=== PATIENT | female | born 1955 | race Caucasian/White ===

== ENCOUNTER → 2017-01-25 | Outpatient (CLI) | payer OTHER | LOC: BMCIMAGING 07:18 | PROVIDERS: ATTEND Physician Assistant | DX: D18.03 Hemangioma of intra-abdominal structures (principal); K76.89 Other specified diseases of liver ==

== ENCOUNTER → 2017-08-09 | Outpatient (CLI) | payer OTHER | LOC: BMCIMAGING 07:15 | PROVIDERS: ATTEND Physician Assistant | DX: D18.00 Hemangioma unspecified site (principal) ==

== ENCOUNTER 2018-06-27 07:15 | Observation (INO) | payer OTHER ==
--- NOTE | 2018-06-24 13:50 | GHP ---
DATE OF ADMISSION: 06/27/2018 Date of planned procedure: 06/27/2018. PREOPERATIVE DIAGNOSIS: Osteoarthritis, left knee. PLANNED PROCEDURE: Left total knee arthroplasty. HPI: The patient is a 63-year-old female with slowly worsening knee pain, valgus deformity of her le ft knee. She has failed conservative management and decision made to proceed with a total knee arthr oplasty. PRIOR MEDICAL HISTORY: Anemia, history of a blood clot, migraines, UTI. MEDICATIONS: Nature-Throid 65 mg tablet. ALLERGIES: Bactrim, gives her a headache, severe hives. Oxycodone, anaphylaxis. SOCIAL HISTORY: Former smoker. Currently not smoking. Occasional alcohol use. Enjoys biking and l ifting weights. [place] here [place] town. REVIEW OF SYSTEMS: No shortness of breath. No chest pain. PHYSICAL EXAM: VITAL SIGNS: She is 5 feet 5 inches tall, weighs 150 pounds. Blood pressure is 126/ 68, heart rate 68, respiratory rate is 14 on room air. GENERAL: Alert and oriented x3. HEENT: Nor mocephalic, atraumatic. Extraocular muscles are intact. NECK: Supple. There is no lymphadenopathy . No JVD. CHEST: Clear to auscultation. CARDIOVASCULAR: Regular rate and rhythm. ABDOMEN: Soft , nontender, nondistended. There is no hepatosplenomegaly. EXTREMITY: Left knee shows no effusion. There is full extension, 125 degrees of flexion. Does have a valgus deformity, it is correctable t o straight. Otherwise it is stable to varus and valgus stress testing. 1+ Luke with firm endpoin t. Negative posterior drawer. Calf is soft without tenderness. 2+ dorsalis pedis, posterior tibial pulses. 5/5 ankle dorsiflexion, plantar flexion, inversion, and eversion, strength. IMAGING: X-rays are reviewed. Again, they show severe tricompartment osteoarthritis with a valgus d eformity. ASSESSMENT: Tricompartment osteoarthritis, left knee, valgus deformity. PLAN: I recommend proceeding with a total knee arthroplasty. Risks and benefits were discussed. We will attempt to do a press-fit knee if her bone quality is okay. Infection, blood clots, and postop erative stiffness were all described as risks. She understands these risks and wishes to proceed. Kyle morse on surgery next Wednesday at [facility]. /[id number]/MODL
--- NOTE | 2018-07-28 22:07 | GHP ---
DATE OF ADMISSION: 07/29/2018 DATE OF PLANNED PROCEDURE: 07/29/2018. PREOPERATIVE DIAGNOSIS: Osteoarthritis, left knee. PLANNED PROCEDURE: Left total knee arthroplasty. HPI: The patient is a 63-year-old female with worsening knee pain, valgus deformity of her left knee , failed conservative management. She was initially scheduled for this procedure last month; however , on preoperative workup she was found to have some abnormalities with her white blood cell count. S he has been worked up by Hematology-Oncology, thought that she may have a type of leukemia. She has a bone marrow aspiration pending. She is cleared from her interior mechanic-oncologist for total knee art hroplasty. PRIOR MEDICAL HISTORY: Anemia, blood clots, migraines, UTI. MEDICATIONS: Nature Thyroid 65 mg. ALLERGIES: Bactrim - headache and hives. Oxycodone - possible anaphylaxis. SOCIAL HISTORY: Former smoker. Moderate alcohol use. [place] here [place] town. REVIEW OF SYSTEMS: No shortness of breath. No chest pain. Otherwise, review of systems unremarkabl e. PHYSICAL EXAM: Healthy-appearing 63-year-old female. She is 5 feet 5 inches tall, weighs 150 pounds . VITAL SIGNS: Blood pressure is 122/64, heart rate is 64, respiratory rate is 12 on room air. GEN ERAL: Alert and oriented x3. HEENT: Normocephalic, atraumatic. Extraocular muscles intact. NECK: Supple. No lymphadenopathy. No JVD. CHEST: Clear to auscultation. CARDIOVASCULAR: Regular rat e and rhythm. ABDOMEN: Soft, nontender, nondistended. No hepatosplenomegaly. EXTREMITIES: Left k nee shows no effusion, valgus alignment. She has full extension and flexes to 125 degrees. Her valg us deformity is correctable to straight. 1+ Luke with a firm endpoint. Negative posterior drawer . Calf is soft. She has 2+ dorsalis pedis and posterior tibial pulses. 5/5 ankle dorsiflexion and plantar flexion. IMAGING: X-rays show severe tricompartment osteoarthritis with valgus deformity. ASSESSMENT: Tricompartment osteoarthritis, left knee valgus deformity. PLAN: I recommend proceeding with a total knee arthroplasty. Risks and benefits including stiffness , need for revision surgery, blood clots, infection were all discussed. She understands these risks and wishes to proceed. We will plan on surgery Wednesday at [facility]. /[id number]/MODL
[2018-07-29] MEDS ORDERED: ceFAZolin 2 GM/DEXTROSE 100 ML IV ONE (13:30)
[2018-07-29] MEDS ORDERED: LR 1,000 ML IV ONE (13:31)
--- NOTE | 2018-07-29 14:10 | POSTANESTH ---
Post Anesthetic Evaluation Cardiovascular Status: Normal, Stable Respiratory Status: Normal, Stable Level of Consciousness/Mental Status: Can Participate in Eval, Mildly Sleepy, Arousable Pain Control: Adequate, Prn Tx Ordered Nausea/Vomiting Control: Adequate, Prn Tx Ordered Complications Possibly Related to Anesthesia: None Noted (Pt moving L toes, but not R yet.)
--- NOTE | 2018-07-29 14:11 | PDANEPAE ---
ANE History of Present Illness 63 yo female with OA for L TKA. ANE Past Medical History - Cardiovascular History Hx Hypertension: No Hx Arrhythmias: No Hx Chest Pain: No Hx Coronary Artery / Peripheral Vascular Disease: No Hx CHF / Valvular Disease: No Hx Palpitations: No - Pulmonary History Hx COPD: No Hx Asthma/Reactive Airway Disease: No Hx Recent Upper Respiratory Infection: No Hx Oxygen in Use at Home: No Hx Sleep Apnea: No Sleep Apnea Screening Result - Last Documented: Negative - Neurologic History Hx Cerebrovascular Accident: No Hx Seizures: No Hx Dementia: No Neurologic History Comment: MIGRAINE - Endocrine History Hx Diabetes: No Hypothyroid: Yes Hyperthyroid: No Obesity: no - Renal History Hx Renal Disorders: No Renal History Comment: KIDNEY INF ONCE about 30 years ago - Liver History Hx Hepatic Disorders: Yes Hepatic History Comment: ACUTE PANCREATITIS 2 YRS AGO. Liver hemangioma, monitored by [facility], has remained unchanged - Neurological & Psychiatric Hx Hx Neurological and Psychiatric Disorders: No - Cancer History Hx Cancer: No Cancer History Comment: pt currently being worked up for elevated lymph count ( maybe CLL) - Congenital Disorder History Hx Congenital Disorders: No - GI History Hx Gastrointestinal Disorders: No - Other Health History Other Health History: wears glasses. sensitive skin, breaks out in rashes easily. POST HIP SURG WHAT MAY HAVE BEEN A CLOT PER [facility] BUT NOT SEEN ON IMAGING. - Chronic Pain History Chronic Pain: Yes (L KNEE PAIN & R HIP OCCAS) - Surgical History Prior Surgeries: L KNEE SCOPE LATERAL RELEASE. R HIP SCOPE ANE Review of Systems Review of Systems: - Exercise capacity METS (RN): 5 METS - Systems Constitutional: Reports: no symptoms Cardiac: Reports: no symptoms Respiratory: Reports: no symptoms ANE Patient History - Allergies Allergies/Adverse Reactions: oxycodone Allergy (Verified 07/28/18 11:13) Swelling neck, face, throat sulfamethoxazole [From Bactrim] Allergy (Verified 07/28/18 11:13) Rash, Severe Headache trimethoprim [From Bactrim] Allergy (Verified 07/28/18 11:13) Rash, Severe Headache - Home Medications Home Medications: Bi-Est Cmpd Cream 1 maci TP DAILY 05/30/18 [Last Taken Unknown] Dhea/Testosterone Cmpd Cream 1 maci TP DAILY 05/30/18 [Last Taken Unknown] Nature Throid 65mg Tab 65 mg PO DAILY 05/30/18 [Last Taken Unknown] Progesterone Cmpd Capsule 1 cap PO HS 05/30/18 [Last Taken Unknown] - Anes Hx Anes Hx: post operative nausea - Smoking Hx Smoking Status: Former smoker - Alcohol Use Alcohol Use: Occasionally - Family Anes Hx Family Anes Hx: neg - N/A Family Hx Anesthesia Complications: NEG ANE Labs/Vital Signs - Vital Signs Vital Signs: reviewed preoperatively; see RN documention for details Height: 165.1 cm Weight: 70.307 kg ANE Physical Exam - Airway Neck exam: FROM Mallampati Score: Class 2 - Pulmonary Pulmonary: clear to auscultation - Cardiovascular Cardiovascular: regular rate and rhythym - ASA Status ASA Status: II ANE Anesthesia Plan Anesthesia Plan: spinal Regional Anesthesia: adductor canal FNB, POPC/PSR
--- NOTE | 2018-07-29 14:12 | PDHPUP ---
History & Physical Update H&P update statement: This history and physical update is based on an assessment of the patient which was completed after admission or registration (within 24 hours), but prior to the surgery/procedure. H&P update: H&P reviewed & patient examined, no change in patient's condition since H&P completed
[2018-07-29] MEDS ORDERED: ceFAZolin 1 GM/5 ML SYR ONE (14:30)
[2018-07-29] MEDS ORDERED: BUPIVACAINE/EPI 0.5% 30 ML SDV ONE (14:30)
[2018-07-29] MEDS ORDERED: fentaNYL 100 MCG/2 ML INJ ONE (14:51)
[2018-07-29] MEDS ORDERED: PROPOFOL/EMULSION 500 MG/50 ML BOTTLE IV ONE (14:57)
[2018-07-29] MEDS ORDERED: THROMBIN (BOVINE) 5,000 UNIT VIAL TP ONE (15:00)
[2018-07-29] MEDS ORDERED: CALCIUM CHLORIDE 1 GM/10 ML INJ ONE (15:00)
[2018-07-29] MEDS ORDERED: ROPIVACAINE HCL 150 MG/30 ML INJ ONE (15:19)
[2018-07-29] MEDS ORDERED: PROPOFOL 200 MG/20 ML VIAL ONE ×2 (15:51)
[2018-07-29] MEDS ORDERED: ALBUTEROL 3 ML DEYVIAL IH PRN (16:02)
[2018-07-29] MEDS ORDERED: ACETAMINOPHEN 500 MG TAB PO PRN (16:02)
[2018-07-29] MEDS ORDERED: ONDANSETRON 4 MG/2 ML VIAL IVP PRN (16:02)
[2018-07-29] MEDS ORDERED: LR 500 ML IV PRN (16:02)
[2018-07-29] MEDS ORDERED: fentaNYL 100 MCG/2 ML INJ IVP PRN (16:02)
[2018-07-29] MEDS ORDERED: NALOXONE HCL 0.4 MG/ML INJ IVP PRN (16:02)
[2018-07-29] MEDS ORDERED: DIAZEPAM 5 MG/ML 1 ML SYR IVP PRN (16:02)
[2018-07-29] MEDS ORDERED: HYDROmorphONE/DILAUDID 2 MG TAB PO PRN (16:04)
[2018-07-29] MEDS ORDERED: MAGNESIUM HYDROXIDE 30 ML UDCUP PO PRN (16:11)
[2018-07-29] MEDS ORDERED: LACTULOSE 20 GM/30 ML UDCUP PO PRN (16:11)
[2018-07-29] MEDS ORDERED: PROMETHAZINE HCL 25 MG SUPPR PR PRN (16:11)
[2018-07-29] MEDS ORDERED: ONDANSETRON DISINTEGRATING 4 MG TAB PO PRN (16:11)
[2018-07-29] MEDS ORDERED: CYCLOBENZAPRINE 10 MG TAB PO PRN (16:11)
[2018-07-29] MEDS ORDERED: BISACODYL 10 MG SUPP PR PRN (16:11)
[2018-07-29] MEDS ORDERED: METOCLOPRAMIDE 10 MG/2 ML VIAL IVP PRN (16:11)
[2018-07-29] MEDS ORDERED: diphenhydrAMINE 25 MG CAP PO PRN (16:11)
[2018-07-29] MEDS ORDERED: TEMAZEPAM 15 MG CAP PO PRN (16:11)
[2018-07-29] MEDS ORDERED: POLYETHYLENE GLYCOL 3350 17 GM PKT PO PRN (16:11)
[2018-07-29] MEDS ORDERED: PROMETHAZINE HCL 25 MG/ML INJ IVP PRN (16:11)
[2018-07-29] MEDS ORDERED: DIPHENOXYLATE/ATROPINE LOMOTIL 1 TAB PO PRN (16:11)
--- NOTE | 2018-07-29 16:11 | POSTOPPROG ---
Post Op Note Date of Operation: 07/29/18 Surgeon: Caio Mistry Bulldogger: Roberto Wilson Anesthesiologist: Albright Anesthesia: Spinal Pre-op Diagnosis: OA LT KNee Post-op Diagnosis: same Procedure: LT TKA Findings: SEvere tricomp OA Inf/Abcess present in the surg proc area at time of surgery?: No EBL: 50-100 Complications: none
[2018-07-29] MEDS ORDERED: LR 1,000 ML IV SCH (16:30)
--- NOTE | 2018-07-29 16:56 | POSTANESTH ---
Post Anesthetic Evaluation Cardiovascular Status: Normal, Stable Respiratory Status: Normal, Stable Level of Consciousness/Mental Status: Can Participate in Eval, Alert and Oriented Pain Control: Adequate, Prn Tx Ordered Nausea/Vomiting Control: Adequate, Prn Tx Ordered Complications Possibly Related to Anesthesia: None Noted (Moving LE upon arrival in PACU.)
[2018-07-29] MEDS: KETOROLAC 15 MG/1 ML SDV IVP SCH ×2 (18:41→23:25)
[2018-07-29] MEDS: ACETAMINOPHEN 325 MG TAB PO SCH ×2 (18:41→23:24)
[2018-07-29] MEDS: ASPIRIN 325 MG TAB PO SCH (20:25)
[2018-07-29] MEDS: FAMOTIDINE 20 MG TAB PO SCH (20:25)
[2018-07-29] MEDS: SENNOSIDES/DOCUSATE SODIUM TAB PO SCH (20:25)
[2018-07-29] MEDS: HYDROmorphONE/DILAUDID 2 MG TAB PO PRN (20:25)
[2018-07-29] MEDS: ceFAZolin 2 GM/DEXTROSE 100 ML IV SCH (22:42)
--- NOTE | 2018-07-30 04:57 | GOP ---
DATE OF OPERATION: 07/29/2018 SURGEON: Caio Mistry MD MANDREL PULLER: Cj Wilson BOAT CLEANER, [facility] ANESTHESIA: Spinal with monitored anesthesia care. ANESTHESIOLOGIST: Dr. Albright PREOPERATIVE DIAGNOSIS: Osteoarthritis, left knee. POSTOPERATIVE DIAGNOSIS: Osteoarthritis, left knee. PROCEDURE PERFORMED: Left total knee arthroplasty Press-fit. FINDINGS: DESCRIPTION OF PROCEDURE: After appropriate informed consent was obtained, patient was taken to the operating room, placed supine on the table. Time-out was performed, and patient was identified. Correct site was identified and matched with radiographs still in the room. She received [address] Albright administered a spinal anesthetic followed by A MAC. Left lower extremity was prepped and draped in usual sterile fashion. All bony prominences were well padded, exsanguinated the limb. Inflated the tourniquet to 250 mmHg. Made a standard midline incision with medial parapatellar arthrotomy. I everted the patella. There was severe cartilage loss in all 3 compartments. Osteophytes were removed from the femur, the tibia , and the patella. We then removed remaining medial lateral meniscus as well as ACL, PCL. I flexed the knee up. Using a drill, we entered the femoral canal and using our distal femoral cutting block, pinned in place. We resected 10 mm off the distal femur. I then turned my attention to the tibia and resected 7 mm off the less involved side. Using our tibial extramedullary guide , we then sized our femur to a size 4, pinned our 4 in [address] , and made our distal femoral cuts. We then pinned our box cutting guide in place and made a box cut. Drilled our lug holes. We turned our attention to our tibia. Size 4 covered the tibia nicely. This was pinned in place. Used our keel punch. We then trialed a 4 femur, 4 tibia, and 9 poly with good extension, good mediolateral stability. Trials were all removed. We drilled our 4 relief pilot holes in the tibia and then on the patella. Osteophytes were removed. I resected 10 mm off the patella leaving 12 mm thickness. This sized to a size 29. We drilled our lug holes. I irrigated the wound and then press- fit the tibia, followed by femur, snapped our poly in place, and press-fit our patella. Good extension, good mediolateral stability. Patella tracked centrally. The wound was irrigated a final time. The extensor tendon was closed with 0 Vicryl. We placed 5 mm of PRP beneath the extensor tendon repair as well as over the extensor tendon repair. Skin was closed with 2-0 Vicryl and a 3-0 Quill stitch in a subcuticular fashion. Steri-Strips were applied to the skin. We instilled 20 mL of 0.5% Marcaine with epinephrine into the knee joint for postoperative analgesia. Sterile dressing was applied. Patient was awakened from anesthesia, taken to the recovery room in satisfactory condition. There were no immediate intraoperative complications. Roberto Wilson's assistance was required throughout the entire case. IMPLANTS USED: Mara size 4 Press-Fit posterior stabilized femur, size 4 Press-Fit tibial, a 9 mm poly, and a 29 mm Press-Fit patella. COMPLICATIONS: None. DRAINS: None. TOTAL TOURNIQUET TIME: 73 minutes at 250 mmHg. HISTORY: Rohini is a 63-year-old female with slowly worsening left knee pain that failed conservative management. Imaging shows severe osteoarthritis in all 3 compartments. Decision was made to proceed with a total knee arthroplasty. /[id number]/MODL MTDD
[2018-07-30] MEDS: ACETAMINOPHEN 325 MG TAB PO SCH ×2 (05:33→12:11)
[2018-07-30] MEDS: KETOROLAC 15 MG/1 ML SDV IVP SCH ×2 (05:33→12:10)
[2018-07-30] MEDS: ceFAZolin 2 GM/DEXTROSE 100 ML IV SCH (05:34)
[2018-07-30] MEDS ORDERED: NATURE THROID 65 MG PO SCH (09:00)
[2018-07-30] MEDS: HYDROmorphONE/DILAUDID 2 MG TAB PO PRN (09:31)
[2018-07-30] MEDS: SENNOSIDES/DOCUSATE SODIUM TAB PO SCH (09:33)
[2018-07-30] MEDS: ASPIRIN 325 MG TAB PO SCH (09:33)
[2018-07-30] MEDS: FAMOTIDINE 20 MG TAB PO SCH (09:33)
[2018-07-30 11:55] VITALS: BP 107/60
--- NOTE | 2018-07-30 12:10 | SOAPPROG ---
SOAP Progress Note Assessment/Plan: Assessment: Plan: 07/30/18 12:08 POD#1 LT TKA DC home ASA 325 mg x 14 days dilaudid prn pain Subjective: pain well controlled Objective: dressing changed incision c/d/i calf soft 5/5 df/pf 1+ dp/tp pulse Vital Signs Temp Pulse Resp BP Pulse Ox 36.5 C 67 14 107/60 97 07/30/18 11:54 07/30/18 11:54 07/30/18 11:54 07/30/18 11:54 07/30/18 11:54 Laboratory Results 07/30/18 04:24 07/29/18 07/30/18 07/31/18 05:59 05:59 05:59 Intake Total 2250 500 Output Total 2110 Balance 140 500 ICD10 Worksheet Patient Problems: Problems Problem Status Onset Abdominal pain Acute Pancreatitis Acute
--- NOTE | 2018-07-30 12:15 | PDIAF ---
- Diagnosis Code Status: Full Code - Medication Management Discharge Medications: electronically signed and located in the Home Medication List. - Orders Diet Recommendation: no restrictions on diet Diet Texture: Regular Texture Diet Wound Care Instructions: keep incision covered for showers x 7 days Activity/Weight Bearing Restrictions: WBAT - Follow Up Care Current Providers and Referrals: Tang Akins MD [Primary Care Provider] - Caio Mistry MD [Medical Doctor] -
--- NOTE | 2018-07-30 12:57 | ASMTCMCOM ---
CM Note CM Note Notes: Pt had planned OA of L knee. Pt resides with spouse. OT rec home, PT rec outpatient. No CM d/c needs identified. Date Signed: 07/30/2018 12:57 PM Electronically Signed By:IGOR Julien
== END 2018-07-30 12:36 | disposition home or self-care (01) ==
LOC: F3N 07-29 13:14
PROVIDERS: ADMIT Orthopaedic Surgery; ATTEND Orthopaedic Surgery
PROC: 0SRD0JZ Replacement of Left Knee Joint with Synthetic Substitute, Open Approach (ICD-10-PCS; principal; 2018-07-29 14:45)
DX: M17.12 Unilateral primary osteoarthritis, left knee (principal); M21.062 Valgus deformity, not elsewhere classified, left knee; D64.9 Anemia, unspecified; G43.909 Migraine, unspecified, not intractable, without status migrainosus; Z87.440 Personal history of urinary (tract) infections; Z87.891 Personal history of nicotine dependence
CPT/HCPCS: 27447; 73560; 97110; 97161; 97165; G0378; J0690; J1885; J2704; J2795; J3010

== ENCOUNTER → 2018-08-26 | Outpatient (CLI) | payer OTHER | LOC: FIMAGING 08:17 | PROVIDERS: ATTEND Physician Assistant | DX: K76.9 Liver disease, unspecified (principal); D18.03 Hemangioma of intra-abdominal structures ==